=== PATIENT | male | born 1960 | race Caucasian/White ===

== ENCOUNTER 2024-03-24 16:40 | Emergency (ER) | payer BC ==
[2024-03-24] MEDS ORDERED: Nitroglycerin 0.4 MG Tab.SL SL PRN (16:53)
[2024-03-24] MEDS ORDERED: Sodium Chloride 0.9% 10 ML Syringe FLUSH PRN (16:53)
[2024-03-24 17:02] LABS: BASOPHILS PERCENT AUTO 0.7 % (0.3-3.8); EOSINOPHILS ABSOLUTE AUTO 0.1 x10-3/uL (0.0-0.6); EOSINOPHILS PERCENT AUTO 2.1 % (0.1-6.8); HEMATOCRIT 48.3 % (38.3-50.1); HEMOGLOBIN 16.9 g/dL (12.9-17.7); LYMPHOCYTES ABSOLUTE AUTO 1.1 x10-3/uL (0.5-4.5); LYMPHOCYTES PERCENT AUTO 16.3 % (15.8-45.3); MEAN CORPUSCULAR HEMOGLOBIN 31.6 pg (27.0-33.3); MEAN CORPUSCULAR VOLUME 90.2 fL (80.8-98.7); MEAN PLATELET VOLUME 7.8 fL (6.7-11.0); MONOCYTES ABSOLUTE AUTO 0.4 x10-3/uL (0.0-1.2); MONOCYTES PERCENT AUTO 6.6 % (5.5-15.2); NEUTROPHILS PERCENT AUTO 74.3 % (40.3-71.8); PLATELET COUNT,PLT 344 x10(3)uL (117-477); RED BLOOD CELL COUNT 5.36 x10(6)uL (3.90-5.90); RED CELL DISTRIBUTION WIDTH 13.8 % (12.4-15.0); WHITE BLOOD CELL COUNT,WBC 6.7 x10-3/uL (3.2-10.1)
[2024-03-24 17:07] LABS: BLOOD UREA NITROGEN,BUN 12 mg/dL (7-18); BUN/CREATININE RATIO 10.9 (9-20); CALCIUM 9.4 mg/dL (8.6-10.2); CARBON DIOXIDE,CO2 28 mmol/L (21-32); CHLORIDE,CL 99 mmol/L (100-110); CREATININE 1.1 mg/dL (0.70-1.30); ESTIMATED GFR 76 mL/min (>60); GLUCOSE RANDOM 262 mg/dL (80-116); POTASSIUM,K 3.7 mmol/L (3.5-5.3); SODIUM,NA 137 mmol/L (135-145)
[2024-03-24 17:13] LABS: A/G RATIO 1.2; ALANINE AMINOTRANSFERASE,ALT 35 U/L (12-36); ALBUMIN 4.3 g/dL (3.2-4.6); ALKALINE PHOSPHATASE 84 IU/L (56-112); ASPARTATE AMNIOTRANSFERASE,AST 16 IU/L (5-25); BILIRUBIN TOTAL 1.2 mg/dL (0.1-1.3); PROTEIN TOTAL,TP 7.8 g/dL (6.0-8.0)
[2024-03-24] MEDS: Aspirin 81 MG Tab.Chew PO ONE (17:16)
== END 2024-03-24 18:04 ==
LOC: FB.ED 16:40
DX: I21.3 ST elevation (STEMI) myocardial infarction of unspecified site (principal); E11.65 Type 2 diabetes mellitus with hyperglycemia
CPT/HCPCS: 36415; 80053; 84484; 85025; 93005; 99285; A9270